=== PATIENT | male | born 1945 | race Caucasian/White ===

== ENCOUNTER → 2022-08-11 09:07 | Outpatient (CLI) | payer MEDICARE, SELFPAY ==
--- NOTE | ~2022-08-11 | MR_ITS ---
MRI of the lumbar spine Clinical History: Radiculopathy Technique: Axial T2-weighted images, and sagittal T1-weighted, T2-weighted, and T2 fat-sat images wer e acquired. Findings: There is no fracture or subluxation of the lumbar spine. Vertebral bodies maintain normal h eight and alignment. No bone marrow signal abnormality seen. At L1-L2, L2-L3, L3-L4, there is no disc bulge or herniation. There are facet joint degenerative cornelius ges at these levels. No spinal canal stenosis or neural foraminal narrowing. At L4-L5, there is minimal disc bulge with facet arthropathy. Probable tiny annular fissure present. There is no spinal canal stenosis. There is mild bilateral neural foraminal narrowing, right worse th an left. At L5-S1, there is disc bulge and facet arthropathy, which contribute to mild central canal stenosis. There is moderate to severe bilateral neural foraminal narrowing. Paravertebral soft tissues are unremarkable. Impression: Moderate degenerative spondylosis at L5-S1, as detailed above. Mild degenerative spondylosis at L4-L5, as detailed above. Minimal degenerative change at the remaining lumbar levels, as noted above. Reviewed, dictated and finalized at [facility]. Impression: Moderate degenerative spondylosis at L5-S1, as detailed above. Mild degenerative spondylosis at L4-L5, as detailed above. Minimal degenerative change at the remaining lumbar levels, as noted above.
--- NOTE | ~2022-08-11 | MR_ITS ---
EXAMINATION: MR pelvis wo con DATE: 08/11/2022 10:23 INDICATION: Radiculopathy TECHNIQUE: Magnetic resonance imaging (MRI) of the pelvis was performed without intravenous contrast. [place]field sequences of the pelvis included axial, sagittal and coronal T1-weighted FSE and T2-weight ed FS FSE. COMPARISON: None. FINDINGS: Osteonecrosis at the bilateral femoral heads. On the left side involves 3 separate regions at the ant erior, posterior and superomedial aspect of the left femoral head involving the majority of the artic ular surface area. On the right side were there is more extensive marrow edema which extends into the femoral neck this involves the majority of the volume of the femoral head. No evident cortical disco ntinuity or collapse of the articular cortex. There is an associated small right hip joint effusion. 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 No fracture or pathologic marrow replacing process. Mild lower lumbar spondylosis. There is bilateral facet osteoarthritis, moderate at L4-L5 and severe at L5-S1. Moderate bilateral neural foraminal stenosis at L4-L5 and L5-S1. Mild bilateral gluteus min imus and medius tendinopathy without tear. The iliopsoas and proximal hamstring tendons are normal. V isualized visceral organs in the pelvis are normal. No pathologically enlarged pelvic or inguinal lym phadenopathy. IMPRESSION: 1. Osteonecrosis at the bilateral femoral heads. No evident cortical discontinuity or articular surfa ce collapse although this would be better appreciated with CT as clinically indicated. 2. Likely secondary small reactive right hip joint effusion. 3. Mild lower lumbar spondylosis. Reviewed, dictated and finalized at [facility]. IMPRESSION: 1. Osteonecrosis at the bilateral femoral heads. No evident cortical discontinu ity or articular surface collapse although this would be better appreciated wit h CT as clinically indicated. 2. Likely secondary small reactive right hip joint effusion. 3. Mild lower lumbar spondylosis.
== END ==
PROVIDERS: PCP Family Medicine; Visit Provider Physician Assistant
DX: M54.41 Lumbago with sciatica, right side (principal); M25.551 Pain in right hip; M47.896 Other spondylosis, lumbar region; M47.897 Other spondylosis, lumbosacral region
CPT/HCPCS: 72148; 72195